=== PATIENT | female | born 1955 | race Caucasian/White ===

== ENCOUNTER 2018-02-03 10:20 | Emergency (ER) | payer OTHER ==
[~2018-02-03] VITALS: Ht 162.6 cm; Wt 56.8 kg
[2018-02-03 10:54] VITALS: BP 130/79
--- NOTE | 2018-02-03 11:06 | NUR ---
63 YO F BIB SELF W/ C/O LT EYE PAIN/IRRITATION/SCRATCHY DICOMFORT 08/18 SINCE THIS MORNING AFTER THE SHOWER; ADVISED BY OPTHAMOLOGIST TO COME TO ER EYE DR OUT OF THE OFFICE TODAY. PT HAS APT TOMORROW MORNING BUT CONCERNED ABOUT HER EYE. STATES SHE WAS GETTING OUT OF THE SHOWER WHEN IT STARTED. STATES "IT FEELS LIKE IT MOVES AROUND". AAOX4. [facility] 15. CMS INTACT. RR EVEN AND UNLABORED. LUNGS BILATERALLY CLEAR. ABD SOFT, NON-TENDER. ER MD SCHAEFER NOTIFIED. PT NEEDS MET. SAFETY PRECAUTIONS IN PLACE. WILL CONTINUE TO MONITOR.
[2018-02-03 11:31] VITALS: BP 130/79
--- NOTE | 2018-02-03 11:31 | NUR ---
PATIENT LEFT WITHOUT BEING SEEN BY DR. SCHAEFER. NO FURTHER CARE PROVIDED FOR PATIENT. ER MD NOTIFIED.
--- NOTE | 2018-02-03 11:31 | NUR ---
PT LWBS AT THIS TIME
== END 2018-02-03 11:31 | disposition left against medical advice (07) ==
LOC: MED 10:20
DX: H57.12 Ocular pain, left eye (principal); I10 Essential (primary) hypertension